=== PATIENT | male | born 1960 | race Caucasian/White ===

== ENCOUNTER 2017-02-17 03:42 | Emergency (ER) | payer OTHER ==
[2017-02-17] MEDS ORDERED: ONDANSETRON 4 MG/2 ML VIAL IVP STA (03:50)
[2017-02-17] MEDS ORDERED: KETOROLAC 30 MG/ML 1 ML VIAL IVP STA (03:50)
--- NOTE | 2017-02-17 03:54 | ED ---
General Adult HPI - General Stated complaint: Abd pain Time Seen by Provider: 02/17/17 03:42 Source: RN notes reviewed - History of Present Illness Initial comments: this is a 36-year-old male who presents to the emergency department with no significant recent past medical history. Patient states years ago he had some sort of virus that had him in the hospital for a few months but they never found out what the virus was.patient comes in today because he started having lright back pain which radiates around to the front lower abdomen. Patient denies any increased pain with palpation. Patient states she was nauseated but did not vomit. Patient denies any fever chills or cough. Patient denies any dysuria hematuria urinary frequency. Patient denies any recent injury or trauma. Patient states she's never had anything similar to this in the past. Patient denies any diarrhea. - Related Data Home Medications Medication Instructions Recorded Confirmed No Known Home Medications [No 04/10/14 04/10/14 Known Home Medications] Allergies Allergy/AdvReac Type Severity Reaction Status Date / Time heparin Allergy Rash/Hives Verified 02/17/17 04:06 Review of Systems ROS Statement: Those systems with pertinent positive or pertinent negative responses have been documented in the HPI. ROS Other: All systems not noted in ROS Statement are negative. Past Medical History Past Medical History: No Reported History, Blood Disorder (Thrombocytopenia noted at [facility] 04/01/2014.) Additional Past Medical History / Comment(s): Seasonal ALLERGIES and sinusitis. History of Any Multi-Drug Resistant Organisms: None Reported Past Surgical History: No Surgical Hx Reported Additional Past Surgical History / Comment(s): Endoscopic sinus surgery. Past Psychological History: No Psychological Hx Reported Smoking Status: Never smoker Past Alcohol Use History: Rare Past Drug Use History: None Reported Additional Drug Use History / Comment(s): Patient is a lifelong nonsmoker. He drinks alcohol very rare basis. He denies any medical marijuana, marijuana, street drug use. He is currently living at home with his . They do not have any children. He works in [employer] and they receive hydraulic equipment from [employer]. 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 He does have exposure to cows. He denies any other animal exposures. He did travel to [facility] in August. He does not have any service. - Past Family History Father Family Medical History: No Reported History (Father is 82 years old and healthy. No significant health problems per patient.) Mother Family Medical History: Unable to Obtain (Mother from lupus at age 50.) General Exam - General Exam Comments Initial Comments: GENERAL: Patient is well-developed and well-nourished. Patient is nontoxic and well- hydrated and is in mild distress. ENT: Neck is soft and supple. No significant lymphadenopathy is noted. Oropharynx is clear. Moist mucous membranes. Neck has full range of motion without eliciting any pain. EYES: The sclera were anicteric and conjunctiva were pink and moist. Extraocular movements were intact and pupils were equal round and reactive to light. Eyelids were unremarkable. PULMONARY: Unlabored respirations. Good breath sounds bilaterally. No audible rales rhonchi or wheezing was noted. CARDIOVASCULAR: There is a regular rate and rhythm without any murmurs gallops or rubs. ABDOMEN: Soft and nontender with normal bowel sounds. No palpable organomegaly was noted. There is no palpable pulsatile mass. SKIN: Skin is clear with no lesions or rashes and otherwise unremarkable. NEUROLOGIC: Patient is alert and oriented x3. Cranial nerves II through XII are grossly intact. Motor and sensory are also intact. Normal speech, volume and content. Symmetrical smile. MUSCULOSKELETAL: Normal extremities with adequate strength and full range of motion. No lower extremity swelling or edema. No calf tenderness. LYMPHATICS: No significant lymphadenopathy is noted PSYCHIATRIC: Normal psychiatric evaluation. Normal interpersonal interactions appears functionally intact in deals appropriately with others. No signs of depression. Course Vital Signs 02/17/17 02/17/17 02/17/17 03:45 05:01 06:00 Temperature 97.1 F L Pulse Rate 61 50 L 50 L Respiratory 18 18 18 Rate Blood Pressure 179/91 149/82 129/80 O2 Sat by Pulse 100 98 95 Oximetry Medical Decision Making - Medical Decision Making I went back into the room to reevaluate the patient patient stated that his back pain had gone away while in the emergency department. I explained the patient I had no expiration for the back pain however if it were to return oriented any new symptoms he was to return to the emergency department he understood as well as his understood. - Lab Data Result diagrams: 02/17/17 03:50 02/17/17 03:50 Lab Results 02/17/17 02/17/17 02/17/17 Range/Units 03:50 03:50 05:55 WBC 7.9 (3.8-10.6) k/uL RBC 4.87 (4.30-5.90) m/uL Hgb 14.5 (13.0-17.5) gm/dL Hct 45.0 (39.0-53.0) % MCV 92.3 (80.0-100.0) fL MCH 29.8 (25.0-35.0) pg MCHC 32.3 (31.0-37.0) g/dL RDW 13.2 (11.5-15.5) % Plt Count 185 (150-450) k/uL Neutrophils % 76 % Lymphocytes % 16 % Monocytes % 6 % Eosinophils % 1 % Basophils % 0 % Neutrophils # 6.0 (1.3-7.7) k/uL Lymphocytes # 1.3 (1.0-4.8) k/uL Monocytes # 0.5 (0-1.0) k/uL Eosinophils # 0.1 (0-0.7) k/uL Basophils # 0.0 (0-0.2) k/uL Sodium 142 (137-145) mmol/L Potassium 4.4 (3.5-5.1) mmol/L Chloride 105 (98-107) mmol/L Carbon Dioxide 26 (22-30) mmol/L Anion Gap 11 mmol/L BUN 23 H (9-20) mg/dL Creatinine 1.20 (0.66-1.25) mg/dL Est GFR (MDRD) Af Amer >60 (>60 ml/min/1.73 sqM) Est GFR (MDRD) Non-Af >60 (>60 ml/min/1.73 sqM) Glucose 128 H (74-99) mg/dL Calcium 9.5 (8.4-10.2) mg/dL Total Bilirubin 0.5 (0.2-1.3) mg/dL AST 17 (17-59) U/L ALT 31 (21-72) U/L Alkaline Phosphatase 73 (38-126) U/L Total Protein 6.7 (6.3-8.2) g/dL Albumin 4.1 (3.5-5.0) g/dL Amylase 69 (30-110) U/L Lipase 96 (23-300) U/L Urine Color Yellow Urine Appearance Clear (Clear) Urine pH 6.5 (5.0-8.0) Ur Specific [place] 1.022 (1.001-1.035) Urine Protein Trace H (Negative) Urine Glucose (UA) Negative (Negative) Urine Ketones Negative (Negative) Urine Blood Negative (Negative) Urine Nitrite Negative (Negative) Urine Bilirubin Negative (Negative) Urine Urobilinogen <2.0 (<2.0) mg/dL Ur Leukocyte Esterase Negative (Negative) Disposition Clinical Impression: Back pain Disposition: HOME SELF-CARE Instructions: Back Pain (ED) Referrals: Seth Burciaga DO [Doctor of Osteopathic Medicine] - 1-2 days Time of Disposition: 07:09
[2017-02-17 04:18] LABS: Basophils % (A) 0 %; CH 29.9; CHCM 32.6; Eosinophils # (A) 0.1 k/uL (0-0.7); Eosinophils % (A) 1 %; HGB 14.5 gm/dL (13.0-17.5); Luc # (Auto) 0.09; Luc % (Auto) 1; Lymphocytes # (A) 1.3 k/uL (1.0-4.8); Lymphocytes % (A) 16 %; MCH 29.8 pg (25.0-35.0); MCHC 32.3 g/dL (31.0-37.0); MCV 92.3 fL (80.0-100.0); Mean Platelet Volume 7.9; Monocytes # (A) 0.5 k/uL (0-1.0); Monocytes % (A) 6 %; Neutrophils % (A) 76 %; RBC 4.87 m/uL (4.30-5.90); RDW 13.2 % (11.5-15.5); WBC 7.9 k/uL (3.8-10.6); WBC (Perox) 7.67
[2017-02-17 04:28] LABS: ALT 31 U/L (21-72); AST 17 U/L (17-59); Alkaline Phosphatase 73 U/L (38-126); Amylase 69 U/L (30-110); Anion Gap 11 mmol/L; Blood Urea Nitrogen 23 mg/dL (9-20); Calcium 9.5 mg/dL (8.4-10.2); Carbon Dioxide 26 mmol/L (22-30); Chloride 105 mmol/L (98-107); Glucose 128 mg/dL (74-99); Non-African American GFR(MDRD) >60 (>60 ml/min/1.73 sqM); Potassium 4.4 mmol/L (3.5-5.1); Sodium 142 mmol/L (137-145); Total Bilirubin 0.5 mg/dL (0.2-1.3); Total Protein 6.7 g/dL (6.3-8.2)
--- NOTE | 2017-02-17 05:03 | CT ---
EXAM: CT Abdomen and Pelvis Without Intravenous Contrast CLINICAL HISTORY: Right flank pain. Abdominal pain. TECHNIQUE: Axial computed tomography images of the abdomen and pelvis without intravenous contrast. Coronal and sagittal reformatted images were created and reviewed. DOSE INFORMATION: CTDI is 12.70 mGy and DLP is 727.30 mGy-cm. This CT exam was performed using one or more of the following dose reduction techniques: automated exposure control, adjustment of the mA and/or kV according to patient size, and/or use of iterative reconstruction technique. COMPARISON: No relevant prior studies available. FINDINGS: Lower thorax: No acute findings. Mild focal thickening along the posterior aspect of the right hemidiaphragm of uncertain etiology or clinical significance. ABDOMEN: Liver: Subcentimeter hypodense lesion in the right hepatic lobe, nonspecific. Liver otherwise unremarkable on noncontrast CT. Gallbladder and bile ducts: Question subtle density in the dependent portion of the gallbladder. No pericholecystic fluid or inflammation. No biliary dilation. Pancreas: Unremarkable. No ductal dilation. No adjacent inflammatory changes. Spleen: Unremarkable. No splenomegaly. Adrenals: Unremarkable. No mass. Kidneys and ureters: No hydronephrosis or ureteral calculus. Stomach and bowel: Fecalization of distal small bowel contents and scattered air-fluid levels in small bowel. No evidence of bowel obstruction. No significant bowel wall thickening. Few scattered colonic diverticula without evidence of acute diverticulitis. Appendix: No evidence of acute appendicitis. PELVIS: Bladder: Unremarkable. No calculi or wall thickening. Reproductive: Unremarkable as visualized. ABDOMEN and PELVIS: Intraperitoneal space: No free air. No significant fluid collection. Bones/joints: L5 spondylolysis with grade 1 spondylolisthesis at L5-S1. Disc space narrowing at L5-S1. Mild osseous degenerative changes. No evidence of acute fracture. Soft tissues: Unremarkable. Vasculature: Mild atherosclerosis. No abdominal aortic aneurysm. Lymph nodes: No enlarged lymph nodes. IMPRESSION: 1. No hydronephrosis, ureteral calculus or perinephric inflammatory changes to account for right flank pain. 2. Fecalization of distal small bowel contents and scattered air-fluid levels in small bowel. Findings may be related to ileus or enteritis in the appropriate clinical setting. 3. No evidence of small bowel obstruction or free air. No evidence of acute appendicitis. Few scattered colonic diverticula without evidence of acute diverticulitis. 4. Question subtle density in the dependent portion of the gallbladder, possibly artifact or sludge. Right upper quadrant ultrasound can be obtained for further evaluation if there is clinical concern for acute gallbladder process.
[2017-02-17 06:39] LABS: Appearance,Urine Clear (Clear); Bilirubin,Urine Negative (Negative); Glucose,Urine (UA) Negative (Negative); Ketones,Urine Negative (Negative); Leukocyte Esterase,Urine Negative (Negative); Nitrite,Urine Negative (Negative); PH, Urine 6.5 (5.0-8.0); Protein,Urine Trace (Negative); Specific Gravity,Urine 1.022 (1.001-1.035); UA Billing (MACRO vs. MICRO) CHEM; Urobilinogen,Urine <2.0 mg/dL (<2.0)
[2017-02-17 07:20] VITALS: BP 130/74; PULSE 61; RESP 16; TEMP 98.2
== END 2017-02-17 07:33 | disposition home or self-care (01) ==
LOC: EC 03:42
DX: M54.9 Dorsalgia, unspecified (principal); R10.31 Right lower quadrant pain; R11.0 Nausea; Z88.8 Allergy status to other drugs, medicaments and biological substances
CPT/HCPCS: 36415; 80053; 82150; 83690; 85025; 81003; 74176; 99284; 96374; 96375; J2405; J1885

== ENCOUNTER 2024-05-28 15:14 | Observation (INO) | payer MEDICARE, OTHER ==
--- NOTE | 2024-05-28 15:36 | ED ---
Neuro HPI - General Stated Complaint: Near Syncope Time Seen by Provider: 05/28/24 15:34 Source: patient Mode of arrival: EMS Limitations: no limitations - History of Present Illness Is the patient presenting with stroke symptoms?: Yes Onset/Timin -: minutes(s) Initial Comments: Patient is a 63-year-old gentleman past medical history of hypertension presenting today for dizziness, right face numbness and left arm numbness. Patient was working outside in the heat and feeling very sweaty, slammed his finger under 2 piece of metal and then began feeling more sweaty and noted onset dizziness. Dizziness described as lightheadedness. Patient notes a half an hour prior to arrival possible she ate he began noticing feeling like his right face was tightening up and tingling. On assessment patient also notes left arm numbness. No prior history of stroke. Is not on blood thinners. Denies fever, CP or shortness of breath. Denies changes in vision or slurred speech. Denies headache or vertigo. Location: right face, left arm Quality: numb - Related Data Home Medications: Home Medications Medication Instructions Recorded Confirmed Ascorbic Acid [Vitamin C] 1,000 mg PO DAILY 05/28/24 05/28/24 Cholecalciferol (Vitamin D3) 50 mcg PO DAILY 05/28/24 05/28/24 [Vitamin D3 (50 Mcg = 2000 Iu)] Magnesium 250 mg PO DAILY 05/28/24 05/28/24 Mv-Min/Folic/K1/Lycopen/Lutein 1 tab PO DAILY 05/28/24 05/28/24 [Centrum Silver Men Tablet] Zinc Gluconate [Zinc] 50 mg PO DAILY 05/28/24 05/28/24 lisinopriL [Zestril] 20 mg PO DAILY 05/28/24 05/28/24 Allergies/Adverse Reactions: Allergies Allergy/AdvReac Type Severity Reaction Status Date / Time heparin Allergy Rash/Hives Verified 05/28/24 16:22 sulfamethoxazole Allergy Unknown Verified 05/28/24 16:39 [From Bactrim] trimethoprim [From Bactrim] Allergy Unknown Verified 05/28/24 16:39 Review of Systems ROS Statement: Those systems with pertinent positive or pertinent negative responses have been documented in the HPI. ROS Other: All systems not noted in ROS Statement are negative. Constitutional: Denies: fever, chills General Exam - General Exam Comments Initial Comments: PE: CONSTITUTIONAL: [no apparent distress, well appearing] SKIN: [warm, damp, no jaundice, hives or petechiae] EYES:[ pupils are equally round, extraocular movements intact without nystagmus, clear conjunctiva, non-icteric sclera] HENT: [normocephalic, atraumatic, moist mucus membranes, oropharynx clear without exudates] NECK: , [Full range of motion, normal appearance] PULMONARY: [clear to auscultation without wheezes, rhonchi, or rales, normal excursion, no accessory muscle use and no stridor] CARDIOVASCULAR:[ regular rate, rhythm, normal S1 and S2. No appreciated murmurs, rubs or gallops. Strong radial pulses with intact distal perfusion. No lower extremity edema] GASTROINTESTINAL: [soft, non-tender, non-distended, no palpable masses, no rebound or guarding. No hepatosplenomegaly] MUSCULOSKELETAL: [Extremities have no gross deformity, no edema, redness, or swelling. No calf swelling ot TTP. ] NEUROLOGIC: [_a/o x 3, GCS 15, normal mentation and speech. Moves all extremities x 4 without motor deficit cranial nerves: II (visual low without defects), III, IV and (extraocular movements are intact, pupils are equal with normal reaction to light), V intact jaw opening, decrease sensation to light touch on the right side of the face, VII (no facial droop), IX and X (normal palate movement, midline uvula, normal voice), XI (symmetrical shoulder shrug and lateral head rotation against resistance), XII (midline tongue pro trusion). Motor strength is 5/5 in all extremities. No abnormal movements. Normal muscle tone. Sensation to light touch is decreased in left upper extremity, sensation to light touch is intact in other 3 extremities. PSYCHIATRIC:[ _normal mood and affect, thought process is clear and linear] Stroke MDM - Lab Data Result diagrams: 05/28/24 15:45 05/28/24 15:45 Lab Results 05/28/24 05/28/24 05/28/24 Range/Units 15:43 15:45 15:45 WBC 6.9 (3.8-10.6) k/uL RBC 4.91 (4.30-5.90) m/uL Hgb 15.3 (13.0-17.5) gm/dL Hct 46.0 (39.0-53.0) % MCV 93.6 (80.0-100.0) fL MCH 31.1 (25.0-35.0) pg MCHC 33.2 (31.0-37.0) g/dL RDW 12.6 (11.5-15.5) % Plt Count 162 (150-450) k/uL MPV 9.3 Neutrophils % 74 % Lymphocytes % 17 % Monocytes % 6 % Eosinophils % 2 % Basophils % 0 % Neutrophils # 5.1 (1.3-7.7) k/uL Lymphocytes # 1.2 (1.0-4.8) k/uL Monocytes # 0.4 (0-1.0) k/uL Eosinophils # 0.1 (0-0.7) k/uL Basophils # 0.0 (0-0.2) k/uL PT 10.4 (10.0-12.5) sec INR 0.9 (<1.2) APTT 19.4 L (22.0-30.0) sec Sodium (137-145) mmol/L Potassium (3.5-5.1) mmol/L Chloride (98-107) mmol/L Carbon Dioxide (22-30) mmol/L Anion Gap mmol/L BUN (9-20) mg/dL Creatinine (0.66-1.25) mg/dL Est GFR (CKD-EPI)AfAm (>60 ml/min/1.73 sqM) Est GFR (CKD-EPI)NonAf (>60 ml/min/1.73 sqM) Glucose (74-99) mg/dL POC Glucose (mg/dL) 144 H (70-110) mg/dL POC Glu Indirect Sales Representative ID Vagts, Suzin Calcium (8.4-10.2) mg/dL Total Bilirubin (0.2-1.3) mg/dL AST (17-59) U/L ALT (4-49) U/L Alkaline Phosphatase (38-126) U/L Creatine Kinase (55-170) U/L Troponin I (0.000-0.034) ng/mL Total Protein (6.3-8.2) g/dL Albumin (3.5-5.0) g/dL 05/28/24 05/28/24 Range/Units 15:45 15:45 WBC (3.8-10.6) k/uL RBC (4.30-5.90) m/uL Hgb (13.0-17.5) gm/dL Hct (39.0-53.0) % MCV (80.0-100.0) fL MCH (25.0-35.0) pg MCHC (31.0-37.0) g/dL RDW (11.5-15.5) % Plt Count (150-450) k/uL MPV Neutrophils % % Lymphocytes % % Monocytes % % Eosinophils % % Basophils % % Neutrophils # (1.3-7.7) k/uL Lymphocytes # (1.0-4.8) k/uL Monocytes # (0-1.0) k/uL Eosinophils # (0-0.7) k/uL Basophils # (0-0.2) k/uL PT (10.0-12.5) sec INR (<1.2) APTT (22.0-30.0) sec Sodium 141 (137-145) mmol/L Potassium 5.0 (3.5-5.1) mmol/L Chloride 110 H (98-107) mmol/L Carbon Dioxide 22 (22-30) mmol/L Anion Gap 9 mmol/L BUN 29 H (9-20) mg/dL Creatinine 1.24 (0.66-1.25) mg/dL Est GFR (CKD-EPI)AfAm 71 (>60 ml/min/1.73 sqM) Est GFR (CKD-EPI)NonAf 61 (>60 ml/min/1.73 sqM) Glucose 140 H (74-99) mg/dL POC Glucose (mg/dL) (70-110) mg/dL POC Glu Indirect Sales Representative ID Calcium 10.0 (8.4-10.2) mg/dL Total Bilirubin 1.1 (0.2-1.3) mg/dL AST 29 (17-59) U/L ALT 31 (4-49) U/L Alkaline Phosphatase 64 (38-126) U/L Creatine Kinase 63 (55-170) U/L Troponin I <0.012 (0.000-0.034) ng/mL Total Protein 6.5 (6.3-8.2) g/dL Albumin 4.3 (3.5-5.0) g/dL - NIH Stroke Scale 1a. Level of Consciousness: (0) alert 1b. LOC Questions: (0) answers correctly 1c. LOC Commands: (0) performs tasks correctly 2. Best Gaze: (0) normal 3. Visual: (0) no visual loss 4. Facial Palsy: (0) normal symmetrical movement 5a. Motor Arm Left: (0) no drift 5b. Motor Arm Right: (0) no drift 6a. Motor Leg Left: (0) no drift 6b. Motor Leg Right: (0) no drift 7. Limb Ataxia: (0) absent 8. Sensory: (1) mild/moderate sensory loss 9. Best Language: (0) no aphasia 10. Dysarthria: (0) normal 11. Extinction/Inattention: (0) no abnormality - Medical Decision Making Was pt. sent in by a medical professional or institution (, PA, STRUCTURAL ANALYST, urgent care, hospital, or alf...) When possible be specific @ -No Did you speak to anyone other than the patient for history (EMS, parent, family, police, friend...)? What history was obtained from this source @ -No Did you review nursing and triage notes (agree or disagree)? Why? @ -[I reviewed and agree with nursing and triage notes with exception of endorsed right arm tingling, assessment patient endorsed right face tingling and left arm tingling Were old charts reviewed (outside hosp., previous admission, EMS record, old EKG, old radiological studies, urgent care reports/EKG's, alf records)? Report findings @ -Patient's most recent chart available on my review is from an ED visit in 2017 Differential Diagnosis (chest pain, altered mental status, abdominal pain women, abdominal pain men, vaginal bleeding, weakness, fever, dyspnea, syncope, headache, dizziness, GI bleed, back pain, seizure, CVA, palpatations, mental health, musculoskeletal)? @ -Differential diagnosis remains broad however top considerations include Ischemic stroke, hemorrhagic stroke, brain tumor, atypical migraine, infection, heat syndrome, hypoglycemia, electrolytes disturbance.... This is not meant to be an all-inclusive list EKG interpreted by me (3pts min.). @ -Sinus bradycardia, rate 58 bpm, ME interval 170 ms, QRS 102 ms, QT/QTc 399/3 to 95 ms, normal axis, no ST elevations or depressions, no arrhythmia X-rays interpreted by me (1pt min.). @ -Chest x-ray shows no cardiomegaly or consolidations, no acute process on my assessment CT interpreted by me (1pt min.). @ -CT brain shows no large vessel occlusion, mass or evidence of hemorrhage on my assessment U/S interpreted by me (1pt. min.). @ -None done What testing was considered but not performed or refused? (CT, X-rays, U/S, labs)? Why? @ -None What meds were considered but not given or refused? Why? @ -None Did you discuss the management of the patient with other professionals (professionals i.e. , PA, STRUCTURAL ANALYST, lab, RT, psych nurse, social science manager, taxicab dispatcher, te acher, chief sustainability officer, field nurse case manager)? Give summary @Patient discussed with Dr. Weber, neuro interventionalist, see ED course Was smoking cessation discussed for >3mins.? @ -No Was critical care preformed (if so, how long)? @ -Yes 35 minutes, spent evaluating patient, reevaluation of patient, discussion with consultants, ordering and interpreting labs and imaging Were there social determinants of health that impacted care today? How? (Homelessness, low income, unemployed, alcoholism, drug addiction, transportation, low edu. Level, literacy, decrease access to med. care, half-way, rehab)? @ -No Was there de-escalation of care discussed even if they declined (Discuss DNR or withdrawal of care, Hospice)? DNR status @ -No What co-morbidities impacted this encounter? (DM, HTN, Smoking, COPD, CAD, Cancer, CVA, ARF, Chemo, Hep., AIDS, mental health diagnosis, sleep apnea, morbid obesity)? @ -HTN Was patient admitted / discharged? Hospital course, mention meds given and route, prescriptions, significant lab abnormalities, going to OR and other pertinent info. @ -Admitted- Patient is a pleasant 63-year-old gentleman presenting today for sudden onset dizziness, right face tingling and upon further evaluation in the emergency department left upper extremity tingling after working outside in the heat today. On my assessment patient is well-appearing and in no acute distress, NIH score of 2 for decree sensation to the right face and decreased excision of left upper extremity. Patient is not diaphoretic and is not febrile. Did consider heat syndromes such as heat exhaustion in differential however patient is not hyperthermic/ febrile on arrival so this was lower on differential. 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 Patient transferred to Ct. Discussed with neurointerventional list, patient is not a TNK candidate due to low NIH, will proceed with imaging, if imaging negative for hemorrhage begin dual antiplatelet therapy. Labs and imaging reviewed. Grossly within normal limits. Abnormal values not concerning for acute pathology related to presenting complaint. On reassessment patient endorses improvement and resolution of symptoms. Discussed plan for DAPT and admission for potential TIA. Patient agreeable with POC. Discussed with [facility], who kindly accepts patient for admission. Undiagnosed new problem with uncertain prognosis? @ -No Drug Therapy requiring intensive monitoring for toxicity (Heparin, Nitro, Insulin, Cardizem)? @ -No Were any procedures done? @ -No Diagnosis/symptom? @ -TIA Acute, or Chronic, or Acute on Chronic? @ -Acute Uncomplicated (without systemic symptoms) or Complicated (systemic symptoms)? @ -Complicated Side effects of treatment? @ -No Exacerbation, Progression, or Severe Exacerbation? @ -No Poses a threat to life or bodily function? How? (Chest pain, USA, IA, pneumonia, PE, COPD, DKA, ARF, appy, cholecystitis, CVA, Diverticulitis, Homicidal, Suicidal, threat to staff... and all critical care pts) @ -Yes, if allowed to progress untreated or unmonitored, could put patient at risk for CVA which could cause or serious disability Past Medical History Past Medical History: No Reported History, Blood Disorder (Thrombocytopenia noted at [facility] 04/01/2014.) Additional Past Medical History / Comment(s): Seasonal ALLERGIES and sinusitis. History of Any Multi-Drug Resistant Organisms: None Reported Past Surgical History: No Surgical Hx Reported Additional Past Surgical History / Comment(s): Endoscopic sinus surgery. Past Psychological History: No Psychological Hx Reported Past Alcohol Use History: Rare Past Drug Use History: None Reported Additional Drug Use History / Comment(s): Patient is a lifelong nonsmoker. He drinks alcohol very rare basis. He denies any medical marijuana, marijuana, street drug use. He is currently living at home with his . They do not have any children. He works in [employer] and they receive hydraulic equipment from [employer]. 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 He does have exposure to cows. He denies any other animal exposures. He did travel to [facility] in August. He does not have any service. - Past Family History Father Family Medical History: No Reported History (Father is 82 years old and healthy. No significant health problems per patient.) Mother Family Medical History: Unable to Obtain (Mother from lupus at age 50.) Course Vital Signs 05/28/24 05/28/24 05/28/24 15:20 15:34 16:04 Temperature 97.5 F L Pulse Rate 60 58 L 59 L Respiratory 16 16 16 Rate Blood Pressure 130/79 132/84 136/70 O2 Sat by Pulse 98 95 Oximetry 05/28/24 05/28/24 05/28/24 16:19 16:34 16:38 Temperature Pulse Rate 62 58 L 63 Respiratory 16 16 20 Rate Blood Pressure 140/79 O2 Sat by Pulse 96 98 98 Oximetry 05/28/24 05/28/24 05/28/24 16:49 17:38 18:00 Temperature Pulse Rate 61 59 L 62 Respiratory 16 16 17 Rate Blood Pressure 134/72 O2 Sat by Pulse 98 97 98 Oximetry 05/28/24 05/28/24 05/28/24 19:00 19:49 20:00 Temperature Pulse Rate 59 L 62 68 Respiratory 16 16 16 Rate Blood Pressure 135/81 140/76 O2 Sat by Pulse 95 95 97 Oximetry 05/28/24 05/28/24 21:03 21:08 Temperature Pulse Rate 68 64 Respiratory 16 16 Rate Blood Pressure 144/70 O2 Sat by Pulse 98 97 Oximetry - Reevaluation(s) Reevaluation #1: Called to bedside by RN for possible stroke alert. Patient had presented via EMS and was not made a stroke alert on arrival however patient's RN, Rosanna noted patient to have right facial numbness and was concern for stroke. NIH of 2 on assessment decrease in station left upper extremity and right face, no facial droop, slurred speech or weakness. Patient is not on blood thinners. No history of strokes. No chest pain. Endorses associated lightheadedness. 05/28/24 15:36 Reevaluation #2: Reviewed imaging, CT brain as no acute process or hemorrhage, CTA shows no acute process. Spoke with Dr. Weber, neurointerventionalist, rec'd dual antiplatelet therapy if CT negative. ASA and plavix ordered. 05/28/24 16:28 Disposition Clinical Impression: TIA (transient ischemic attack) Disposition: ADMITTED IP TO THIS HOSP
[2024-05-28 15:45] LABS: Glucose,Whole Blood 144 mg/dL (70-110)
[2024-05-28] MEDS: SODIUM CHLORIDE 0.9% 1,000 ML IV STA (15:45)
--- NOTE | 2024-05-28 15:56 | CT ---
Head CT without contrast HISTORY: Code stroke, acute neuro deficit. Comparison: None. TECHNIQUE: Multiple axial images are obtained through the skull base to vertex without use of IV cont rast material. FINDINGS: The ventricles, basal cisterns and sulci over the convexities are within normal limits and there is n o mass effect or shift of midline structures. No abnormal density is seen throughout the brain parenchyma and there is no acute intra or extra-axia l hemorrhage. The posterior fossa including the brainstem, fourth ventricle and cerebellar pontine angles appear no rmal. Intraorbital contents appear normal and symmetric. Visualized paranasal sinuses and mastoid air cells are well aerated. The calvarium is intact. IMPRESSION: No significant abnormality seen. There is no acute bleed or mass effect.
[2024-05-28 16:01] LABS: Basophils % (A) 0 %; Eosinophils # (A) 0.1 k/uL (0-0.7); Eosinophils % (A) 2 %; HGB 15.3 gm/dL (13.0-17.5); Lymphocytes # (A) 1.2 k/uL (1.0-4.8); Lymphocytes % (A) 17 %; MCH 31.1 pg (25.0-35.0); MCHC 33.2 g/dL (31.0-37.0); MCV 93.6 fL (80.0-100.0); Mean Platelet Volume 9.3; Monocytes # (A) 0.4 k/uL (0-1.0); Monocytes % (A) 6 %; Neutrophils # (A) 5.1 k/uL (1.3-7.7); Neutrophils % (A) 74 %; Platelet Count 162 k/uL (150-450); RBC 4.91 m/uL (4.30-5.90); RDW 12.6 % (11.5-15.5); WBC 6.9 k/uL (3.8-10.6)
[2024-05-28 16:18] LABS: ALT 31 U/L (4-49); African American GFR (CKD) 71 (>60 ml/min/1.73 sqM); Albumin 4.3 g/dL (3.5-5.0); Anion Gap 9 mmol/L; Blood Urea Nitrogen 29 mg/dL (9-20); Carbon Dioxide 22 mmol/L (22-30); Chloride 110 mmol/L (98-107); Creatine Kinase 63 U/L (55-170); Glucose 140 mg/dL (74-99); Non-African American GFR(CKD) 61 (>60 ml/min/1.73 sqM); Sodium 141 mmol/L (137-145); Total Bilirubin 1.1 mg/dL (0.2-1.3); Total Protein 6.5 g/dL (6.3-8.2)
[2024-05-28 16:19] LABS: INR 0.9 (<1.2); Prothrombin Time 10.4 sec (10.0-12.5)
--- NOTE | 2024-05-28 16:21 | CT ---
EXAMINATION TYPE: CODE STROKE: CTA head neck DATE OF EXAM: 05/28/2024 HISTORY: cva COMPARISON: None CT DLP: 594.6 mGycm. Automated Exposure Control for Dose Reduction was Utilized. TECHNIQUE: CTA scan of the head and neck is performed with IV Contrast, patient injected with 65 mL of Isovue 370, axial images are obtained, coronal and sagittal reformatted images are reviewed. 3D re constructed images are created on an independent workstation and reviewed. FINDINGS: The brachiocephalic origins are widely patent and no significant stenosis. There is no significant stenosis of the common or internal carotid arteries within the neck. There is no stenosis of the vertebral arteries. Intracranially, there is no stenosis, segmental occlusion, sizable aneurysm sac or vascular malformat ion. IMPRESSION:. No significant abnormality seen. NASCET criteria was used in interpretation of this exam?
[2024-05-28 16:27] LABS: Partial Thromboplastin Time 19.4 sec (22.0-30.0)
[2024-05-28 16:36] LABS: AST 29 U/L (17-59); Alkaline Phosphatase 64 U/L (38-126)
--- NOTE | 2024-05-28 16:59 | XR ---
EXAMINATION TYPE: XR chest 2V DATE OF EXAM: 05/28/2024 4:41 PM CLINICAL INDICATION: Male, 63 years old with history of altered mental status; [facility] COMPARISON: Chest radiographs from 04/14/2014 TECHNIQUE: XR chest 2V Frontal view of the chest. FINDINGS: Lungs/Pleura: There is no evidence of pleural effusion, focal consolidation, or pneumothorax. Pulmonary vascularity: Unremarkable. Heart/mediastinum: Cardiomediastinal silhouette is unremarkable. Musculoskeletal: No acute osseous pathology. IMPRESSION: No acute cardiopulmonary disease/process.
[2024-05-28] MEDS: ONDANSETRON 4 MG/2 ML VIAL IVP STA (17:15)
[2024-05-28] MEDS: ASPIRIN 325 MG TAB PO STA (17:58)
[2024-05-28] MEDS: CLOPIDOGREL 75 MG TAB PO STA (18:02)
[2024-05-28] MEDS ORDERED: NALOXONE 0.4 MG/ML 1 ML VIAL IV PRN (18:19)
[2024-05-28] MEDS ORDERED: MAG HYDROX/AL HYDROX/SIMETH 30 ML CUP PO PRN (18:19)
[2024-05-28] MEDS ORDERED: CALCIUM CARBONATE 500 MG CHEWABLE PO PRN (18:19)
[2024-05-28] MEDS ORDERED: ALPRAZolam 0.25 MG TAB PO PRN (18:19)
[2024-05-28] MEDS ORDERED: HYDROcodone/APAP 5-325MG 1 EACH TAB PO PRN (18:19)
[2024-05-28] MEDS: FAMOTIDINE 20 MG TAB PO SCH (20:55)
[2024-05-28] MEDS: diphenhydrAMINE 50 MG CAP PO STA (23:16)
[2024-05-28] MEDS: ACETAMINOPHEN TAB 325 MG TAB PO PRN (23:16)
[2024-05-29 04:37] LABS: Appearance,Urine Clear (Clear); Bilirubin,Urine Negative (Negative); Blood,Urine Negative (Negative); Color,Urine Yellow; Glucose,Urine (UA) Negative (Negative); Ketones,Urine Negative (Negative); Leukocyte Esterase,Urine Negative (Negative); Nitrite,Urine Negative (Negative); Protein,Urine Negative (Negative); Specific Gravity,Urine 1.042 (1.001-1.035); Urobilinogen,Urine <2.0 mg/dL (<2.0)
[2024-05-29 04:48] LABS: Amphetamine Screen,Urine Not Detected (NotDetected); Barbiturate Screen,Urine Not Detected (NotDetected); Benzodiazepines Screen,Urine Not Detected (NotDetected); Cocaine Screen,Urine Not Detected (NotDetected); Methadone Screen, Urine Not Detected (NotDetected); Opiate Screen,Urine Not Detected (NotDetected); Oxycodone Screen, Urine Not Detected (NotDetected); Phencyclidine Screen,Urine Not Detected (NotDetected); Tricyclic Antidepressant,Urine Not Detected (NotDetected); Urn Cannabinoid Scrn Not Detected (NotDetected)
[2024-05-29] MEDS: MAGNESIUM OXIDE 400 MG TAB PO SCH (08:21)
[2024-05-29] MEDS: ASCORBIC ACID 500 MG TAB PO SCH (08:21)
[2024-05-29] MEDS: ZINC SULFATE 220 MG CAP PO SCH (08:21)
[2024-05-29] MEDS: MULTIVITAMINS, THERA 1 EACH TAB PO SCH (08:22)
[2024-05-29] MEDS: CHOLECALCIFEROL 25 MCG (1000 IU) TABLET PO SCH (08:22)
[2024-05-29] MEDS: lisinopriL 20 MG TAB PO SCH (08:22)
[2024-05-29 08:25] VITALS: RESP 20
[2024-05-29] MEDS: ASPIRIN 81 MG PO SCH (14:11)
--- NOTE | 2024-05-29 15:17 | CA ---
Transthoracic Echo Report Name: Edwar Gaston Age: 63 Gender: M : 1960 Exam Date: 05/29/2024 12:25 Exam Location: [facility] Ht (in): 76 Wt (lb): 217 Ordering Physician: Christian Montana MD Attending/Referring Phys: [employer] Analyst Natasha Hartman RDCS Procedure CPT: Indications: LV function Cardiac Hx: Technical Quality: Fair Contrast 1: Agitated Saline Total Dose (mL): 10 Contrast 2: Total Dose (mL): MEASUREMENTS (Male / Female) Normal Values 2D ECHO LV Diastolic Diameter PLAX 5.4 cm 4.2 - 5.9 / 3.9 - 5.3 cm LV Systolic Diameter PLAX 3.6 cm IVS Diastolic Thickness 1.0 cm 0.6 - 1.0 / 0.6 - 0.9 cm LVPW Diastolic Thickness 0.9 cm 0.6 - 1.0 / 0.6 - 0.9 cm LV Relative Wall Thickness 0.4 RV Internal Dim ED PLAX 3.3 cm LA Volume 69.0 cm??? 18 - 58 / 22 - 52 cm??? LA Volume Index 29.9 cm???/m??? 16 - 28 cm???/m??? M-MODE Aortic Root Diameter MM 3.2 cm LA Systolic Diameter MM 4.5 cm LA Ao Ratio MM 1.4 AV Cusp Separation MM 2.5 cm DOPPLER AV Peak Velocity 113.5 cm/s AV Peak Gradient 5.1 mmHg AV Mean Velocity 75.4 cm/s AV Mean Gradient 2.6 mmHg AV Velocity Time Integral 24.7 cm LVOT Peak Velocity 81.9 cm/s LVOT Peak Gradient 2.7 mmHg LVOT Velocity Time Integral 19.1 cm MV Area PHT 3.8 cm??? Mitral E Point Velocity 73.5 cm/s Mitral A Point Velocity 58.7 cm/s Mitral E to A Ratio 1.3 MV Deceleration Time 202.0 ms MV E' Velocity 7.9 cm/s Mitral E to MV E' Ratio 9.3 FINDINGS Left Ventricle Normal Left ventricular size, wall thickness, systolic function with no obvious regional wall motion abnormalities. Normal Left ventricular diastolic filling pattern. Left ventricular ejection fraction is estimated at 55-60 %. Right Ventricle Normal right ventricular size and function. Right ventricular systolic pressure within normal limits. Right Atrium Normal right atrial size. Negative agitated saline bubble study for right to left shunt. Left Atrium Mildly increased left atrial volume. Mildly increased left atrial area. Mitral Valve Structurally normal mitral valve. Trace to mild mitral regurgitation. Aortic Valve Trileaflet aortic valve. No aortic valve stenosis or regurgitation. Tricuspid Valve Structurally normal tricuspid valve. Mild tricuspid regurgitation. Pulmonic Valve Structurally normal pulmonic valve. Trace pulmonic regurgitation. Pericardium No pericardial effusion. Aorta Normal size aortic root and proximal ascending aorta. CONCLUSIONS Left ventricular ejection fraction 55-60% Negative bubble study Mildly dilated left atrium Trace to mild mitral regurgitation Mild tricuspid regurgitation Previewed by: Dr. Rayo Nash DO (Electronically Signed) Final Date: 29 May 2024 15:17
[2024-05-29 16:30] VITALS: BP 128/73; PULSE 52; TEMP 98
--- NOTE | 2024-05-30 09:36 | P.CNNES ---
History of Present Illness Consult date: 05/29/24 Requesting physician: Trisha Rice Reason for Consult: TIA History of Present Illness: Patient is a 63-year-old right-handed male with history of hypertension came to the hospital by ambulance yesterday at 3:14 PM for strokelike symptoms. Patient states he has history of "critical illness neuropathy", 11 years ago, and he took about 1 year to recuperate but believes he still has mild weakness, right side more than left. This is going on for the last 10 to 11 years. 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 Inside the garage it was not too bad, as there were still fans running. They went inside for the lunch, and when they came back, started working outside. It was very hot day. He was sweating profusely. While he was working outside he started feeling dizzy, weak, nauseous. The dizziness more like lightheadedness and not vertigo. He then noticed numbness and tingling of the right side of the jaw, arm and leg. There was no slurred speech, facial droop although he felt the right side of the face felt tighter. He did not pass out, denies any problem with the balance or any visual disturbance. There was no pain anywhere. As the symptoms persisted, he decided to call the EMS and was brought to the ER. Symptoms resolved shortly after he arrived to the ER. Overall he believes the symptoms lasted for about couple hours. As per EMS flowsheet, when they arrived, patient was laying, stating he was feeling dizzy and weak. Patient was found at his garage, alert and orient x 4 with GCS of 15. Patient stated he was cleaning up inside and out at the garage and was not keeping himself hydrated all day. Patient stated that he was lifting when he became weak and dizzy. Patient was diaphoretic and weak. His blood pressure at the scene was 113/63, pulse rate 67 respiration 20, saturation 98%. Blood test shows normal CBC, PT PTT, normal electrolytes, BUN 29 creatinine 1.24. Hepatic panel is normal, troponin negative. UA negative, urine drug screen negative. EKG showed sinus bradycardia 58. CT head showed no significant abnormality. No acute process. I personally reviewed CT head, agree with the findings. Visualized paranasal sinuses and external auditory canal are clear. In the ER, it appears patient was given aspirin 325 mg and Plavix 300 mg loading dose. Home medications include magnesium, lisinopril 20 mg, vitamin D and multivitamins. Patient does not take any antiplatelet medication at home. At present he has no symptoms. Patient states that he has history of hypertension for 8 years. Denies hyperlipidemia. He has never smoked. Denies any cardiac issues. Review of Systems Constitutional: Denies chills, Denies fever Eyes: denies blurred vision, denies diplopia, denies pain, denies loss of vision Ears: deny: decreased hearing, ear discharge Ears, nose, mouth and throat: Denies headache, Denies sore throat, Denies vertigo Cardiovascular: Reports lightheadedness, Denies chest pain, Denies shortness of breath Respiratory: Denies cough, Denies excessive sputum Gastrointestinal: Reports nausea, Denies abdominal pain, Denies diarrhea, Denies vomiting Genitourinary: Denies dysuria, Denies incontinence Musculoskeletal: Reports muscle weakness, Denies muscle cramps, Denies myalgias, Denies neck pain Integumentary: Denies pruritus, Denies rash Neurological: Reports as per HPI Psychiatric: Denies anxiety, Denies depression Past Medical History Past Medical History: Hypertension Additional Past Medical History / Comment(s): Seasonal ALLERGIES and sinusitis, hx of hemodialysis, hx of multi-system organ failure. History of Any Multi-Drug Resistant Organisms: None Reported Past Surgical History: No Surgical Hx Reported Additional Past Surgical History / Comment(s): Endoscopic sinus surgery Past Anesthesia/Blood Transfusion Reactions: No Reported Reaction Past Psychological History: No Psychological Hx Reported Smoking Status: Never smoker Past Alcohol Use History: Rare Past Drug Use History: None Reported Additional Drug Use History / Comment(s): Patient is a lifelong nonsmoker. He drinks alcohol very rare basis. He denies any medical marijuana, marijuana, street drug use. He is currently living at home with his . They do not have any children. He works in [employer] and they receive hydraulic equipment from [employer]. 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 He does have exposure to cows. He denies any other animal exposures. He did travel to [facility] in August. He does not have any service. - Past Family History Father Family Medical History: No Reported History Mother Family Medical History: Unable to Obtain Medications and Allergies Home Medications Medication Instructions Recorded Confirmed Type Ascorbic Acid [Vitamin C] 1,000 mg PO DAILY 05/28/24 05/28/24 History Cholecalciferol (Vitamin D3) 50 mcg PO DAILY 05/28/24 05/28/24 History [Vitamin D3 (50 Mcg = 2000 Iu)] Magnesium 250 mg PO DAILY 05/28/24 05/28/24 History Mv-Min/Folic/K1/Lycopen/Lutein 1 tab PO DAILY 05/28/24 05/28/24 History [Centrum Silver Men Tablet] Zinc Gluconate [Zinc] 50 mg PO DAILY 05/28/24 05/28/24 History lisinopriL [Zestril] 20 mg PO DAILY 05/28/24 05/28/24 History Aspirin 81 mg PO DAILY tab 05/29/24 Rx Allergies Allergy/AdvReac Type Severity Reaction Status Date / Time heparin Allergy Rash/Hives Verified 05/28/24 16:22 sulfamethoxazole Allergy Unknown Verified 05/28/24 16:39 [From Bactrim] trimethoprim [From Bactrim] Allergy Unknown Verified 05/28/24 16:39 Physical Examination - Vital Signs Vital Signs: Vital Signs Temp Pulse Pulse Resp BP BP Pulse Ox 05/29/24 11:21 98.4 F 55 L 20 104/57 97 05/29/24 08:00 98 F 58 L 20 116/69 97 05/29/24 04:00 97.6 F 55 L 18 130/75 98 05/29/24 00:00 98.2 F 54 L 18 144/82 97 05/28/24 21:30 98.3 F 53 L 18 172/88 99 05/28/24 21:08 64 16 97 05/28/24 21:03 68 16 144/70 98 05/28/24 20:00 68 16 140/76 97 05/28/24 19:49 62 16 95 05/28/24 19:00 59 L 16 135/81 95 05/28/24 18:00 62 17 98 05/28/24 17:38 59 L 16 134/72 97 05/28/24 16:49 61 16 98 05/28/24 16:38 63 20 140/79 98 05/28/24 16:34 58 L 16 98 05/28/24 16:19 62 16 96 05/28/24 16:04 59 L 16 136/70 05/28/24 15:34 58 L 16 132/84 95 05/28/24 15:20 97.5 F L 60 16 130/79 98 Intake and Output 05/28/24 05/29/24 05/29/24 22:59 06:59 14:59 Intake Total 10 222 Balance 10 222 Intake: IV 10 Invasive Line 1 10 Oral 222 Other: Voiding Method Toilet Toilet # Voids 1 Weight 102.965 kg 98.7 kg Patient is a young looking elderly male, in no acute distress. Patient is alert awake oriented to time place and person. Speech and language functions are normal. Patient can name and repeat very well. No aphasia or dysarthria. Attention, concentration and fund of knowledge is adequate. On cranial nerve examination, pupils are equal, round and reacting to light, visual low are full on confrontation, with no neglect on double simultaneous stimulation. Extraocular muscles are intact with no nystagmus. Face is symmetric, tongue protrudes to the midline. Palatal elevation and sensation normal, hearing and shoulder shrug normal, facial sensation normal. On muscle strength testing, there is no pronator drift and the strength is normal in arms and legs distally and proximally. Deep tendon reflexes are symmetric 1+, and plantars downgoing. Sensory to touch is equal with no neglect on double simultaneous stimulation. Cerebellar function showed no ataxia for [id number] testing. No dysdiadochokinesia. No ataxia for [id number] testing on either side. Tone and bulk of muscles normal. Gait deferred.. On general examination, there is no carotid bruit or murmur, S1-S2 audible. Chest is clear on consultation. Abdomen is soft nontender. No organomegaly, bowel sounds present. Peripheral pulses are present. No peripheral edema. Results - Laboratory Findings CBC and BMP: 05/28/24 15:45 05/28/24 15:45 Abnormal Lab Findings: Abnormal Labs 05/28/24 05/28/24 05/28/24 15:43 15:45 15:45 APTT 19.4 L Chloride 110 H BUN 29 H Glucose 140 H POC Glucose (mg/dL) 144 H Ur Specific [place] 05/29/24 04:32 APTT Chloride BUN Glucose POC Glucose (mg/dL) Ur Specific [place] 1.042 H Assessment and Plan Assessment: * Possible TIA manifesting with numbness and tingling of the right side of the body including face arm and leg, which resolved in couple hours. At present patient has no symptoms, his NIH stroke scale is 0. Patient not a candidate for tPA. Differential diagnosis also includes heat exhaustion/heat stroke, as he was working outside in very hot weather for extended period of time. * Hypertension * History of critical illness neuropathy 11 years ago with subjective mild residual weakness. Clinically no obvious weakness noted. Plan: * CTA of head and neck revealed no significant abnormality. * Stat 2D echo was performed. Patient's LVEF 55 to 60%. Negative bubble study. Mildly dilated left atrium. Trace MR. Mild TR. * Patient states he had all blood tests performed recently by his primary physician couple months ago, and were normal. Patient was recommended to follow-up with his primary physician, to make sure that he has had hemoglobin A1c checked, and lipid panel checked. If his LDL is > 70, he should be started on statins. * Patient's blood pressure is well-controlled. Patient will be continued on lisinopril 20 mg. * Patient was not taking any antiplatelet medication at home. He has received full loading dose of Plavix 300 mg and aspirin 325 mg. * Patient will be discharged on aspirin 162 mg daily. * We discussed about the MRI. Because of the long weekend, it would not be done until Friday. He wants to go home. As symptoms have resolved, therefore the yield of MRI is also very low. * Telemetry monitoring showing no arrhythmia. * Neurologically clear for discharge. * Thank you for the consult.
== END 2024-05-29 17:20 | disposition home or self-care (01) ==
LOC: EC 15:14 → 3SCARD 18:22
PROVIDERS: ADMIT Hospitalist; ATTEND Hospitalist
DX: R20.0 Anesthesia of skin (principal); R20.2 Paresthesia of skin; I10 Essential (primary) hypertension; Z79.82 Long term (current) use of aspirin; Z79.899 Other long term (current) drug therapy; Z88.2 Allergy status to sulfonamides
CPT/HCPCS: 36415; 70450; 70496; 70498; 71046; 80053; 80306; 81003; 82550; 84484; 85025; 85610; 85730; 93005; 93306; 96360; 96361; 99285